=== PATIENT | male | born 2000 | race African-American/Black ===

== ENCOUNTER 2020-12-18 13:37 | Emergency (ER) | payer MEDICAID ==
[~2020-12-18] VITALS: Ht 172.7 cm; Wt 81.6 kg
[2020-12-18 13:45] VITALS: BP 129/79
[2020-12-18] MEDS ORDERED: AZITHROMYCIN 250 MG TAB PO ONE ×3 (14:45→16:15)
[2020-12-18] MEDS ORDERED: cefTRIAXone SODIUM 250 MG VL IM ONE (14:45)
== END 2020-12-18 15:11 | disposition home or self-care (01) ==
LOC: ER 13:37
DX: B00.89 Other herpesviral infection (principal); Z20.2 Contact with and (suspected) exposure to infections with a predominantly sexual mode of transmission
CPT/HCPCS: 81002; 96372; 99284; J0696

== ENCOUNTER 2024-08-09 13:11 | Emergency (ER) | payer MEDICAID ==
[~2024-08-09] VITALS: Ht 172.7 cm; Wt 76.0 kg
--- NOTE | 2024-08-09 14:09 | ED.PDOC ---
History of Present Illness HPI Comments 23-year-old male presents ER with no prior history associated to the chief complaint of eye redness. Patient reports that he rubbed his right eye yesterday and after the incident his eye has been red and seemed irritated. There are no visual changes and/or trauma. PMHx of asthma. Denies chills, fever, N/V/D, CP, SOB,or other associated symptoms, modifiers, or recent injuries at this time. pt does not use contact lenses Chief Complaint: Eye Problem Time Seen by MD: 14:00 Reviewed Notes: Nurses Notes, Medications, Allergies Allergies: Coded Allergies: NO KNOWN ALLERGIES (Unverified , 08/22/16) Information Source: Patient Mode of Arrival: Ambulatory Severity: Moderate Timing: Hours Duration: Since onset, Hours Prehospital treatment: None Past Medical History PAST MEDICAL HISTORY: Asthma Surgical History: Denies all surgeries Family History Family History: Reviewed,noncontributory to illness, Unknown Social History Smoker: Non-Smoker, Unknown Alcohol: Denies ETOH Use, Unknown Drugs: Unknown Lives In: Home Constitutional: denies: chills, diaphoresis, fatigue, fever, malaise, sweats, weakness, others EENTM: reports: eye redness; denies: blurred vision, double vision, ear bleeding, ear discharge, ear drainage, ear pain, ear ringing, eye pain, hearing loss, mouth pain, mouth swelling, nasal discharge, nose bleeding, nose congestion, nose pain, photophobia, tearing, throat pain, throat swelling, voice changes, others Respiratory: denies: cough, hemoptysis, orthopnea, SOB at rest, shortness of breath, SOB with excertion, stridor, wheezing, others Cardiovascular: denies: chest pain, dizzy spells, diaphoresis, Dyspnea on exertion, edema, irregular heart beat, left arm pain, lightheadedness, palpitations, PND, syncope, others Gastrointestinal: denies: abdomen distended, abdominal pain, blood streaked bowels, constipated, diarrhea, dysphagia, difficulty swallowing, hematemesis, melena, nausea, poor appetite, poor fluid intake, rectal bleeding, rectal pain, vomiting, others Genitourinary: denies: burning, dysuria, flank pain, frequency, hematuria, incontinence, penile discharge, penile sore, pain, testicle pain, testicle swelling, urgency, others Neurological: denies: dizziness, fainting, headache, left sided numbness, left sided weakness, numbness, paresthesia, pre-existing deficit, right sided numbness, right sided weakness, seizure, speech problems, tingling, tremors, w eakness, others Musculoskeletal: denies: back pain, gout, joint pain, joint swelling, muscle pain, muscle stiffness, neck pain, others Integumetry: denies: bruises, change in color, change in hair/nails, dryness, laceration, lesions, lumps, rash, wounds, others Allergic/Immunocompromised: denies: Difficulty Healing, Frequent Infections, Hives, Itching, others Hematologic/Lymphatic: denies: anemia, blood clots, easy bleeding, easy bruising, swollen glands, others Endocrine: denies: excessive hunger, excessive sweating, excessive thirst, excessive urination, flushing, intolerance to cold, intolerance to heat, unexplained weight gain, unexplained weight loss, others Psychiatric: denies: anxiety, bipolar disorder, depression, hopeless, panic disorder, schizophrenia, sleepless, suicidal, others All Other Systems: Reviewed and Negative Physical Exam Exam Comments Conjunctiva is red General Appearance: No Apparent Distress, Normal HEENT: Pharynx Normal, TMs Normal, Other (Conjunctiva redness) Neck: Full Range of Motion, Non-Tender, Normal, Normal Inspection Respiratory: Chest Non-Tender, Lungs Clear, No Accessory Muscle Use, No Respiratory Distress, Normal Breath Sounds Cardiovascular: No Edema, No JVD, No Murmur, No Gallop, Normal Peripheral Pulses, Regular Rate/Rhythm Breast Exam: Deferred Gastrointestinal: No Organomegaly, Non Tender, No Pulsatile Mass, Normal Bowel Sounds, Soft Genitalia: Deferred Pelvic: Deferred Rectal: Deferred Extremities: No calf tenderness, Normal capillary refill, Normal inspection, Normal range of motion, Non-tender, No pedal edema Musculoskeletal : Apperance: Normal Neurologic: Alert, manager bank II-XII nml as Tested, No Motor Deficits, Normal Affect, Normal Mood, No Sensory Deficits Cerebellar Function: Normal Reflexes: Normal Skin: Dry, Normal Color, Warm Lymphatic: No Adenopathy Was a procedure done? Was a procedure done?: No Differential Dx Considerations may include: corneal abrasion. corneal FB, bacterial conjunctivitis, episcleritis, scleritis, glaucoma, allergy, viral conjunctivitis Time of 1ST Reevaluation: 14:30 Reevaluation 1ST: Unchanged Time of 2ND Reevaluation: 14:29 Reevaluation 2ND: Unchanged Patient Education/Counseling: Diagnosis, Treatment, Prognosis Family Education/Counseling: No Family Present Additional Information pt has conjunctivitis, no pain, no discharge, no photosensitivity. there is not a clear rim around the corneal the globe is soft . i do not feel he has glaucoma, corneal injuries. i will start him on ophthalmic antibiotic Departure 1 Departure Time of Disposition: 14:30 Impression: Primary Impression: Conjunctivitis Qualified Codes: H10.31 - Unspecified acute conjunctivitis, right eye Disposition: HOME / SELF CARE / HOMELESS Condition: Good e-Prescriptions Bromfenac Sodium (Ophth) (Bromfenac) 0.09 % Catherine 0.09 % OP BID PRN for 3 Days, #1 EA Prov: SOHAIL REYES MD 08/09/24 Gentamicin Sulfate (Gentamicin Sulfate) 0.3 % Catherine 2 DROP EACHEYE QID, #5 ML Prov: SOHAIL REYES MD 08/09/24 Discharged With: Self Critical Care Note Critical Care Time?: No Stability Stability form required: No I personally scribed for SOHAIL REYES MD ([email or web address]) on 08/09/24 at 14:09. Electronically submitted by Donald Prater ([email or web address]). SOHAIL REYES MD Aug 09, 2024 14:09
[2024-08-09] MEDS ORDERED: [UNRECOGNIZED DRUG - CODE] OP (15:11)
[2024-08-09] MEDS ORDERED: GENT0.3S10 EACHEYE (15:11)
[2024-08-09 15:35] VITALS: BP 119/81; PULSE 68; RESP 16; TEMP 98.2; O2SAT 96
== END 2024-08-09 15:41 | disposition home or self-care (01) ==
LOC: ER 13:11
DX: H10.31 Unspecified acute conjunctivitis, right eye (principal); J45.909 Unspecified asthma, uncomplicated

== ENCOUNTER 2024-12-02 17:38 | Emergency (ER) | payer MEDICAID ==
[~2024-12-02] VITALS: Ht 172.7 cm; Wt 78.3 kg
[~2024-12-02 17:38] MED LIST: GENT0.3S10 EACHEYE; [UNRECOGNIZED DRUG - CODE] OP
[2024-12-02 19:20] LABS: Urine Bacteria None Seen /hpf (None Seen)
--- NOTE | 2024-12-02 19:22 | ED.PDOC ---
History of Present Illness HPI Comments 24 y/o M, with a history of asthma, presents girlfriend with STD test inquiry, today. Patient inquires on trichomoniasis test after learning that another individual, that he had recent sexual relations with, tested positive, recently. He reports being asymptomatic. Chief Complaint: Post Exposure Time Seen by MD: 19:00 Reviewed Notes: Nurses Notes, Medications, Allergies Allergies: Coded Allergies: NO KNOWN ALLERGIES (Unverified , 08/22/16) Home Meds Active Scripts Bromfenac Sodium (Ophth) (Bromfenac) 0.09 % Catherine, 0.09 % OP BID PRN for 3 Days, #1 EA Prov:SOHAIL REYES MD 08/09/24 Gentamicin Sulfate (Gentamicin Sulfate) 0.3 % Catherine, 2 DROP EACHEYE QID, #5 ML Prov:SOHAIL REYES MD 08/09/24 Information Source: Patient, Significant Other Mode of Arrival: Ambulatory Severity: Moderate Timing: Hours Duration: Since onset Prehospital treatment: None Past Medical History PAST MEDICAL HISTORY: Asthma Surgical History: Denies all surgeries Family History Family History: Reviewed,noncontributory to illness, Unknown Social History Smoker: Non-Smoker Alcohol: Denies ETOH Use Drugs: Denies Drug Use Lives In: Home All Other Systems: Reviewed and Negative (Comprehensive review of systems are negative unless otherwise stated in HPI) Physical Exam General Appearance: No Apparent Distress, Normal HEENT: Normal ENT Inspection, Pharynx Normal, TMs Normal Neck: Full Range of Motion, Non-Tender, Normal, Normal Inspection Respiratory: Chest Non-Tender, Lungs Clear, No Accessory Muscle Use, No Respiratory Distress, Normal Breath Sounds Cardiovascular: No Edema, No JVD, No Murmur, No Gallop, Normal Peripheral Pulses, Regular Rate/Rhythm Breast Exam: Deferred Gastrointestinal: No Organomegaly, Non Tender, No Pulsatile Mass, Normal Bowel Sounds, Soft Genitalia: Deferred Pelvic: Deferred Rectal: Deferred Extremities: No calf tenderness, Normal capillary refill, Normal inspection, Normal range of motion, Non-tender, No pedal edema Musculoskeletal : Apperance: Normal Neurologic: Alert, impregnating machine operator II-XII nml as Tested, No Motor Deficits, Normal Affect, Normal Mood, No Sensory Deficits Cerebellar Function: Normal Reflexes: Normal Skin: Dry, Normal Color, Warm Lymphatic: No Adenopathy Was a procedure done? Was a procedure done?: No Differential Dx Considerations may include: STD X-Ray, Labs, Meds, VS Vital Signs Date Time Temp Pulse Resp B/P (MAP) Pulse Ox O2 Delivery O2 Flow Rate FiO2 12/02/24 18:56 98.4 68 16 120/85 (97) 98 98.4 Lab Test 12/02/24 19:00 Range/Units Urine Color Pending Urine Clarity Pending Urine pH Pending Urine Specific [place] Pending Urine Protein Pending Urine Ketones Pending Urine Blood Pending Urine Nitrite Pending Urine Bilirubin Pending Urine Urobilinogen Pending Urine Leukocyte Esterase Pending Urine RBC Pending Urine Microscopic WBC Pending Urine Squamous Epithelial Cells Pending Urine Bacteria Pending Urine Glucose Pending Chlamydia trachomatis (YINKA) Pending Neisseria gonorrhoeae (YINKA) Pending Time of 1ST Reevaluation: 19:30 Reevaluation 1ST: Unchanged Patient Education/Counseling: Diagnosis, Treatment Family Education/Counseling: Diagnosis, Treatment Additional Information Previous visit documents reviewed: n/a The following tests were ordered, and results were reviewed by me: Chlamydia/GC amp. test and UA Additional Information was gathered from interviewing the following independent historians: girlfriend I reviewed and agreed with the following test results read by other providers: n/a I discussed treatment and results with medical personnel and: Patient, girlfriend Departure 1 Departure Time of Disposition: 19:34 (Patient with an STD exposure. We will empirically treat patient and follow up with his regular doctor) Impression: Primary Impression: Possible exposure to STD Disposition: 01 HOME / SELF CARE / HOMELESS Condition: Stable Additional Instructions: You presented today with concern for an STD. We sent the labs and we will call you with the results. We are empirically treating you with antibiotics. Please take as directed. It is important to follow up with the regular doctor within 1 week to ensure you are doing well. e-Prescriptions Doxycycline Hyclate (DOXYCYCLINE HYCLATE) 100 Mg Tab 1 TAB PO BID for 7 Days, #14 TAB Prov: ROYAL GARCIA MD 12/02/24 Metronidazole (Flagyl) 500 Mg Tab 1 TAB PO BID for 7 Days, #14 TAB Prov: ROYAL GARCIA MD 12/02/24 Discharged With: Self Critical Care Note Critical Care Time?: No Stability Stability form required: No Heart Score Heart Score: Heart Score Response (Comments) Value History N/A 0 EKG N/A 0 Age N/A 0 Risk Factors N/A 0 Troponin N/A 0 Total 0 I personally scribed for ROYAL GARCIA MD ([email or web address]) on 12/02/24 at 19:22. Electronically submitted by Trevon Centeno ([email or web address]). ROYAL GARCIA MD Dec 02, 2024 19:22
[2024-12-02] MEDS ORDERED: METR-344 PO (19:35)
[2024-12-02] MEDS ORDERED: DOXY-286 PO (19:35)
[2024-12-02 19:45] VITALS: BP 128/61; PULSE 71; RESP 16; TEMP 97.7; O2SAT 98
[2024-12-02 19:47] LABS: Urine Blood Negative /uL (Negative); Urine Clarity Clear (Clear); Urine Color Yellow (Yellow); Urine Hyaline Cast FEW /lpf (0 - 2); Urine Mucus FEW (None Seen); Urine Protein, UAD Negative (Negative); Urine Specific Gravity 1.029 (1.001-1.035); Urine Squamous Epithelial Cell None Seen /hpf (<5); Urine Urobilinogen Normal (Negative); Urine WBC 2 /HPF (0-3); Urine pH 5.5 (5.0-9.0)
[2024-12-02] MEDS: cefTRIAXone W LIDOCAINE 1 GM IM IM ONE (19:59)
[2024-12-02] MEDS: DOXYCYCLINE 100 MG TAB/CAP PO ONE (19:59)
[2024-12-02] MEDS: LIDOCAINE W/ EPINEPHRINE 1% 20ML VIAL ONE (19:59)
[2024-12-02] MEDS: cefTRIAXone SOD 1,000 MG VL IM ONE (19:59)
[2024-12-02] MEDS: metroNIDAZOLE 500 MG TAB PO ONE (19:59)
[2024-12-04 03:07] LABS: Chlamydia Trachomatis, NAA Negative (Negative); Neisseria gonorrhoeae, NAA Negative (Negative)
== END 2024-12-02 20:00 | disposition home or self-care (01) ==
LOC: ER 17:38
DX: J45.909 Unspecified asthma, uncomplicated (principal); Z20.2 Contact with and (suspected) exposure to infections with a predominantly sexual mode of transmission
CPT/HCPCS: 81001; 87491; 87591; 96372; 99283; J0696